=== PATIENT | female | born 1960 | race Caucasian/White ===

== ENCOUNTER 2017-01-27 05:08 | Emergency (ER) | payer BC, MEDICAID ==
[~2017-01-27] VITALS: Ht 160 cm; Wt 81.6 kg
[2017-01-27] MEDS ORDERED: ONDANSETRON ODT 4 MG TAB PO ONE ×2 (05:16→05:30)
[2017-01-27] MEDS ORDERED: cloNIDine HCL 0.1 MG TAB PO ONE (05:30)
[2017-01-27 06:57] VITALS: BP 137/87
== END 2017-01-27 07:15 | disposition home or self-care (01) ==
LOC: ER 05:12
DX: J01.10 Acute frontal sinusitis, unspecified (principal); I10 Essential (primary) hypertension
CPT/HCPCS: 70450; 99284; Q0162